=== PATIENT | female | born 1975 | race Caucasian/White ===

== ENCOUNTER → 2023-06-08 13:02 | Outpatient (REF) | payer BC, SELFPAY | LOC: WDC 13:02 | PROVIDERS: ATTENDING PHYSICIAN Obstetrics & Gynecology; FAMILY PHYSICIAN Family Medicine | DX: Z12.31 Encounter for screening mammogram for malignant neoplasm of breast (principal) | CPT/HCPCS: 77063; 77067 ==

== ENCOUNTER → 2023-06-15 06:23 | Day surgery (SDC) | payer BC, SELFPAY | LOC: GI 06:23 | PROVIDERS: ATTENDING PHYSICIAN Internal Medicine; FAMILY PHYSICIAN Family Medicine | DX: Z12.11 Encounter for screening for malignant neoplasm of colon (principal); K63.89 Other specified diseases of intestine | CPT/HCPCS: 45380; 88305 ==

== ENCOUNTER → 2024-06-25 17:10 | Outpatient (REF) | payer BC, SELFPAY | LOC: WDC 17:10 | PROVIDERS: ATTENDING PHYSICIAN Obstetrics & Gynecology; FAMILY PHYSICIAN Family Medicine | DX: Z12.31 Encounter for screening mammogram for malignant neoplasm of breast (principal) | CPT/HCPCS: 77063; 77067 ==

== ENCOUNTER 2024-07-09 06:25 | Day surgery (SDC) | payer BC, SELFPAY ==
[2024-07-09 08:40] VITALS: BMI 26.7
[2024-07-09 08:46] VITALS: BP 121/81
[2024-07-09] MEDS: TYLENOL 1000 MG PO (08:57)
[2024-07-09] MEDS: NORMOSOL-R/PLASMALYTE-A 1000 IV (08:57)
--- NOTE | 2024-07-09 11:36 | W.IMMPOSTOP ---
Surgical Immed Post Op Note
-
Primary Surgeon: Cely
Assisting: Debi HENDERSON
Pre-op Diagnosis: Lipoma of right shoulder
Post-op Diagnosis: Same
Procedure Performed: Excision of lipoma
Anesthesia Type: MAC local
Specimen / Cultures: None
Estimated Blood Loss: 2cc
Complications: None immediate
Operative Findings: 2cm x 1cm x 1cm lipoma excised in toto, typical benign features, formal pathology deferred
--- NOTE | 2024-07-09 11:39 | OR.RPT ---
Operative Report
Operative Report
Primary Surgeon: Cely
Assisting: Debi HENDERSON
Pre-op Diagnosis: Lipoma of right shoulder
Post-op Diagnosis: Same
Procedure Performed: Excision of lipoma
Anesthesia Type: MAC local
Specimen / Cultures: None
Estimated Blood Loss: 2cc
Complications: None immediate
Operative Findings: 2cm x 1cm x 1cm lipoma excised in toto, typical benign features, formal pathology deferred
Date of Surgery: 07/09/24
Indications: This 49F developed a lipoma of her anterior right shoulder and excision under MAC local was elected.
PROCEDURE: After informed consent was obtained, the lipoma was marked together with the patient in preop and the patient was brought to the operative suite and placed supine on the operating table. The patient was sedated, prepped and draped in the
usual sterile manner and an adequate local anesthetic was administered using 1% lidocaine with epinephrine.
A skin incision was made with #10 blade and the skin was divided with electrocautery. Metzenbaum brendan were used to free the lipoma from surrounding structures, it was delivered through the wound with gentle pressure and then excised in toto.
Hemostasis was achieved with electrocautery. The incision was then closed in layers with deep dermal interrupted 3-0 vicryl and interrupted 4-0 monocryl suture. Topical skin glue was applied.
The patient tolerated the procedure well and was taken to the PACU in stable condition.
The assistance of Debi HENDERSON was required due to the complexity of the procedure. During the procedure she assisted with retraction, resection, and closure of the wound.
[2024-07-09 11:40] VITALS: BP 110/75
[2024-07-09 12:00] VITALS: BP 119/84
[2024-07-09 12:15] VITALS: BP 131/85
== END 2024-07-09 12:23 | disposition home or self-care (01) ==
LOC: SDS 06:25
PROVIDERS: ATTENDING PHYSICIAN Surgery
DX: D17.21 Benign lipomatous neoplasm of skin and subcutaneous tissue of right arm (principal)
CPT/HCPCS: 11404; 12032

== ENCOUNTER 2024-07-16 06:18 | Day surgery (SDC) | payer BC, SELFPAY | END 2024-07-16 09:14 | disposition home or self-care (01) | LOC: GI 06:18 | PROVIDERS: ATTENDING PHYSICIAN Internal Medicine | DX: Z12.11 Encounter for screening for malignant neoplasm of colon (principal) | CPT/HCPCS: G0121 ==